=== PATIENT | female | born 1970 | race Caucasian/White ===

== ENCOUNTER 2024-08-30 07:27 | Day surgery (SDC) | payer OTHER ==
[2024-08-23 12:32] VITALS: BMI 24.0
[~2024-08-30 07:27] MED LIST: ONDANSETRON 4 MG/2 ML VIAL IVPUSH PRN
[2024-08-30] MEDS ORDERED: LACTATED RINGERS SOLUTION 1,000 ML IV SCH (07:30)
[2024-08-30] MEDS ORDERED: ONDANSETRON 4 MG/2 ML VIAL IVPUSH PRN (10:32)
[2024-08-30] MEDS ORDERED: IBUPROFEN 800 MG/8 ML IJ IVPB PRN (10:32)
[2024-08-30] MEDS ORDERED: IBUPROFEN 600 MG TABLET (FP) PO PRN (10:32)
[2024-08-30] MEDS ORDERED: ELECTROLYTE-148 SOLN 1,000 ML IV SCH (10:45)
[2024-08-30 12:48] VITALS: RESP 18
[2024-08-30 13:05] VITALS: PULSE 72; TEMP 97.3
[2024-08-30 13:22] VITALS: BP 96/62
== END 2024-08-30 13:27 | disposition home or self-care (01) ==
LOC: JASU-SURG 07:27
PROVIDERS: ATTEND Obstetrics & Gynecology
PROC: 0UDB8ZX Extraction of Endometrium, Via Natural or Artificial Opening Endoscopic, Diagnostic (ICD-10-PCS; principal; 2024-08-30 09:30)
DX: N85.00 Endometrial hyperplasia, unspecified (principal)
CPT/HCPCS: 88305-TC; 94760